=== PATIENT | female | born 1975 | race African-American/Black ===

== ENCOUNTER 2016-10-24 19:27 | Emergency (ER) | payer MEDICAID ==
--- NOTE | 2016-10-24 20:07 | ER Document Report ---
ED Medical Screen (RME) - General Chief Complaint: Allergic Reaction Stated Complaint: POSSIBLE ALLERGIC REACTION Time Seen by Provider: 10/24/16 19:54 Mode of Arrival: Ambulatory Information source: Patient TRAVEL OUTSIDE OF THE [place] IN LAST 30 DAYS: No - HPI Patient complains to provider of: Chest pain, shortness of breath, itchy facial allergic reaction Notes: 10/24/16 20:06 Patient is a 41-year-old female with a history of hypertension who recently moved to the area from [place], presenting to the emergency room today with multiple complaints including chest pain with shortness of breath, itchy rash to the face, and elevated blood pressure, symptoms have been going on for the past few days, she denies cough, cold or congestion, no fever or chills, no nausea, vomiting or diarrhea, she denies any pain or tenderness to her calves - Related Data Allergies/Adverse Reactions: iodine Allergy (Verified 10/24/16 19:44) Latex, Natural Rubber Allergy (Verified 10/24/16 19:44) Penicillins Allergy (Verified 10/24/16 19:44) shellfish derived Allergy (Verified 10/24/16 19:44) Past Medical History Renal/ Medical History: Denies: Hx Peritoneal Dialysis Physical Exam - Vital signs Vitals: Temp Pulse Resp BP Pulse Ox 99.0 F 109 H 20 155/101 H 98 10/24/16 19:44 10/24/16 19:44 10/24/16 19:44 10/24/16 19:44 10/24/16 19:44 Course - Vital Signs Vital signs: Temp Pulse Resp BP Pulse Ox 99.0 F 109 H 20 155/101 H 98 10/24/16 19:44 10/24/16 19:44 10/24/16 19:44 10/24/16 19:44 10/24/16 19:44
[2016-10-24] MEDS ORDERED: ASPIRIN 81 MG TABLET, CHEWABLE PO ONE (20:08)
[2016-10-24] MEDS ORDERED: DIPHENHYDRAMINE HCL 25 MG CAPSULE PO ONE (20:08)
--- NOTE | 2016-10-24 21:15 | RADIOLOGY REPORT (SQ) ---
EXAM DESCRIPTION: CHEST PA/LAT COMPLETED DATE/TIME: 10/24/2016 9:03 pm REASON FOR STUDY: cp COMPARISON: None. EXAM PARAMETERS: NUMBER OF VIEWS: two views TECHNIQUE: Digital Frontal and Lateral radiographic views of the chest acquired. RADIATION DOSE: NA LIMITATIONS: none FINDINGS: LUNGS AND PLEURA: No opacities, masses or pneumothorax. No pleural effusion. MEDIASTINUM AND HILAR STRUCTURES: No masses or contour abnormalities. HEART AND VASCULAR STRUCTURES: Heart normal size. No evidence for failure. BONES: No acute findings. HARDWARE: None in the chest. OTHER: No other significant finding. IMPRESSION: NO SIGNIFICANT RADIOGRAPHIC FINDING IN THE CHEST. TECHNICAL DOCUMENTATION: JOB ID: [id number] [employer]- All Rights Reserved
--- NOTE | 2016-10-24 21:19 | ER Document Report ---
ED General - General Chief Complaint: Allergic Reaction Stated Complaint: POSSIBLE ALLERGIC REACTION Time Seen by Provider: 10/24/16 19:54 Mode of Arrival: Ambulatory Notes: Patient is a 41-year-old female with a past medical history of morbid obesity and hypertension who presents to the emergency department stating "I am under a lot of stress right now and I think my pressure is up". States that she has had similar episodes in the past under high stress situations and wanted to be evaluated to be sure that "nothing else was going on". She notes that she has had some mild itching, coughing and sneezing. She also notes that she has had some intermittent dull pressure but denies any chest pain at this time. She denies any shortness of breath, pleuritic pain, history of DVT or pulmonary embolus. She does not use estrogen. She has no cardiac history. She denies any orthopnea, exertional dyspnea or exertional chest pain. Nothing improves or worsens her symptoms. She just moved to the area so she does not have a local primary care doctor. TRAVEL OUTSIDE OF THE [place] IN LAST 30 DAYS: No - Related Data Allergies/Adverse Reactions: iodine Allergy (Verified 10/24/16 19:44) Latex, Natural Rubber Allergy (Verified 10/24/16 19:44) Penicillins Allergy (Verified 10/24/16 19:44) shellfish derived Allergy (Verified 10/24/16 19:44) Past Medical History - General Information source: Patient - Social History Smoking Status: Never Smoker Frequency of alcohol use: None Drug Abuse: None Family History: Reviewed & Not Pertinent Renal/ Medical History: Denies: Hx Peritoneal Dialysis Review of Systems - Review of Systems Notes: Constitutional: Negative for fever. HENT: Negative for sore throat. Eyes: Negative for visual changes. Cardiovascular: Negative for chest pain. Respiratory: Negative for shortness of breath. Positive for coughing Gastrointestinal: Negative for abdominal pain, vomiting or diarrhea. Genitourinary: Negative for dysuria. Musculoskeletal: Negative for back pain. Skin: Negative for rash. Neurological: Negative for headaches, weakness or numbness. 10 point ROS negative except as marked above and in HPI. Physical Exam - Vital signs Vitals: Temp Pulse Resp BP Pulse Ox 99.0 F 109 H 20 155/101 H 98 10/24/16 19:44 10/24/16 19:44 10/24/16 19:44 10/24/16 19:44 10/24/16 19:44 Interpretation: Hypertensive, Tachycardic Notes: PHYSICAL EXAMINATION: GENERAL: Well-appearing, well-nourished and in no acute distress. HEAD: Atraumatic, normocephalic. EYES: Pupils equal round and reactive to light, extraocular movements intact, sclera anicteric, conjunctiva are normal. ENT: nares patent, oropharynx clear without exudates. Moist mucous membranes. NECK: Normal range of motion, supple without lymphadenopathy LUNGS: Breath sounds clear to auscultation bilaterally and equal. No wheezes rales or rhonchi. HEART: Regular rate and rhythm without murmurs ABDOMEN: Soft, nontender, normoactive bowel sounds. No guarding, no rebound. No masses appreciated. EXTREMITIES: Normal range of motion, no pitting or edema. No cyanosis. NEUROLOGICAL: No focal neurological deficits. Moves all extremities spontaneously and on command. PSYCH: Normal mood, normal affect. SKIN: Warm, Dry, normal turgor, no rashes or lesions noted. Course - Re-evaluation Re-evalutation: 10/24/16 21:17 Patient presents with multiple vague complaints that did not appear to be concerning for any acute life-threatening pathology. Vitals are within normal limits at triage and at time of discharge. Physical examination is unremarkable. Patient has tolerated oral intake without difficulty. Patient was not noted to be in distress at any point during their ER visit. At this time, based on the reassuring evaluation, I do not suspect an acute GA, pulmonary embolus, aortic dissection, acute intra-abdominal pathology, stroke, or sepsis.Will discharge with return precautions and follow-up recommendations. Verbal discharge instructions given a the bedside and opportunity for questions given. Medication warnings reviewed. Patient is in agreement with this plan and has verbalized understanding of return precautions and the need for primary care follow-up in the next 24-72 hours. - Vital Signs Vital signs: Temp Pulse Resp BP Pulse Ox 99.0 F 95 17 149/89 H 99 10/24/16 19:44 10/24/16 22:00 10/24/16 22:00 10/24/16 22:00 10/24/16 22:00 - Laboratory Result Diagrams: 10/24/16 21:51 10/24/16 21:51 Laboratory results interpreted by me: 10/24/16 10/24/16 21:51 21:51 WBC 11.3 H Hgb 10.6 L Hct 33.4 L MCV 70 L MCH 22.1 L MCHC 31.8 L RDW 18.0 H Glucose 282 H - Diagnostic Test Radiology reviewed: Image reviewed, Reports reviewed Radiology results interpreted by me: 10/25/16 04:02 Chest x-ray: No acute infiltrate or pneumothorax - EKG Interpretation by Me Additional EKG results interpreted by me: 10/25/16 04:02 Normal sinus rhythm. Rate 97. No ST elevations or depressions. QTC is 442. Discharge - Discharge Clinical Impression: Essential hypertension, Chest discomfort, Hyperglycemia Condition: Good Disposition: HOME, SELF-CARE Additional Instructions: Please return to the emergency room immediately if you experience any concerning symptoms including high fevers, severe headache, chest pain, difficulty breathing, abdominal pain, slurred speech, numbness or weakness in your arms or legs, or any other symptom that concerns you. Prescriptions: Amlodipine Besylate 10 mg PO DAILY #30 tab
[2016-10-24 22:06] LABS: ABSOLUTE EOSINOPHILS # (AUTO) 0.4 10^3/uL (0.0-0.6); ABSOLUTE LYMPHOCYTES (AUTO) 2.7 10^3/uL (0.5-4.7); ABSOLUTE MONOCYTES (AUTO) 0.7 10^3/uL (0.1-1.4); ABSOLUTE NEUT (AUTO) 7.5 10^3/uL (1.7-8.2); BASOPHILS % (AUTO) 0.3 % (0-2); EOSINOPHILS % (AUTO) 3.4 % (0-6); HEMATOCRIT 33.4 % (36.0-47.0); HEMOGLOBIN 10.6 g/dL (12.0-15.5); HGB HCT DIFFERENCE -1.6; MEAN CORPUSCULAR HEMOGLOBIN 22.1 pg (27.0-33.4); MEAN CORPUSCULAR HGB CONC 31.8 g/dL (32.0-36.0); MEAN CORPUSCULAR VOLUME 70 fl (80-97); MONOCYTES % (AUTO) 6.2 % (3-13); SEGMENTED NEUTROPHILS % (AUTO) 66.1 % (42-78); WHITE BLOOD COUNT 11.3 10^3/uL (4.0-10.5)
[2016-10-24 22:24] LABS: ANION GAP 12 (5-19); BLOOD UREA NITROGEN 16 mg/dL (7-20); CARBON DIOXIDE 27 mmol/L (22-30); CHLORIDE 103 mmol/L (98-107); GLUCOSE 282 mg/dL (75-110); POTASSIUM 3.8 mmol/L (3.6-5.0); SODIUM 141.7 mmol/L (137-145)
[2016-10-24 23:59] VITALS: BP 149/89
--- NOTE | 2016-10-25 11:49 | EKG REPORT ---
SEVERITY:- BORDERLINE ECG - SINUS RHYTHM CONSIDER ANTERIOR INFARCT VS LVH : Confirmed by: Avinash Wills 25-Oct-2016 11:48:43
== END 2016-10-24 22:00 | disposition home or self-care (01) ==
LOC: ER 19:27
DX: I10 Essential (primary) hypertension (principal); R07.9 Chest pain, unspecified; R73.9 Hyperglycemia, unspecified; R05 Cough
CPT/HCPCS: 36415; 71020; 80048; 84484; 85025; 93005; 93010; 99284